=== PATIENT | female | born 1930 | race Caucasian/White ===

== ENCOUNTER 2019-08-20 15:39 | Inpatient (IN) ==
[2019-08-20] MEDS ORDERED: ALBUT/IPRATROP 3MG/0.5MG NEB 3 ML VIAL NEB STA (16:16)
[2019-08-20 16:58] LABS: Basophils # (auto) 0.02 K/uL (0-0.2); Basophils % (auto) 0.2 %; Eosinophils # (auto) 0.04 K/uL (0-0.5); Eosinophils % (auto) 0.4 %; Hematocrit (blood only) 41.6 % (37-47); Hemoglobin 13.6 g/dL (12.0-16.0); Immature Granulocytes # (auto) 0.03 K/uL (0.00-0.02); Immature Granulocytes % (auto) 0.3 %; Lymphocytes # (auto) 0.65 K/uL (1.2-3.4); Lymphocytes % (auto) 6.7 %; Mean Corpuscular Hemoglobin 32.6 pg (25-34); Mean Corpuscular Hgb Conc 32.7 g/dL (32-36); Mean Corpuscular Volume 99.8 fL (80-100); Mean Platelet Volume 10.3 fL (7.4-10.4); Monocytes % (auto) 7.2 %; Neutrophils # (auto) 8.23 K/uL (1.4-6.5); Neutrophils % (auto) 85.2 %; Platelet Count 149 K/uL (130-400); RDW Coefficient of Variation 14.7 % (11.5-14.5); RDW Standard Deviation 53.1 fL (36.4-46.3); Red Blood Count 4.17 M/uL (4.2-5.4); White Blood Count 9.67 K/uL (4.8-10.8)
[2019-08-20 17:07] LABS: INR 1.9 (0.9-1.1); Prothrombin Time 18.6 Seconds (9.0-12.0)
--- NOTE | 2019-08-20 17:08 | XRay Report ---
XR chest 1V portable CLINICAL HISTORY: Atypical chest pain SHORTNESS OF BREATH COMPARISON STUDY: No previous studies for comparison. FINDINGS: The study is somewhat limited from a technical standpoint. The cardiac silhouette is enlarg ed. There is a retrocardiac opacity suggestive of a large hiatal hernia. There is aortic tortuosity. There is left basilar atelectasis/consolidation. There is slight interstitial prominence without evid ence of overt failure.[There is splaying of the kaley. IMPRESSION: 1. Suspected large hiatal hernia 2. Aortic tortuosity 3. Left basilar atelectasis/consolidation 4. Splaying of the kaley. This could be secondary to the large hiatal hernia or left atrial enlargem ent Electronically signed by: Jet Julio M.D. 08/20/2019 5:06 PM
[2019-08-20 17:15] LABS: Base Excess VBG -2.6 mEq/L; Oxygen Saturation VBG 79.3 %; pH VBG 7.29 (7.36-7.41)
[2019-08-20 17:21] LABS: Alanine Aminotransferase 19 U/L (12-78); Albumin Level 2.9 gm/dl (3.4-5.0); Aspartate Aminotransferase 18 U/L (15-37); BUN Creatinine Ratio 24.2 (10-20); Blood Urea Nitrogen 25 mg/dl (7-18); Calcium 10.9 mg/dl (8.5-10.1); Carbon Dioxide 28 mmol/L (21-32); Chloride 102 mmol/L (98-107); Est GFR (African American) 54.5; Glucose 94 mg/dl (70-99); Lipase 116 U/L (73-393); Magnesium 1.6 mg/dl (1.8-2.4); Potassium 4.4 mmol/L (3.5-5.1); Sodium 135 mmol/L (136-145)
[2019-08-20 17:31] LABS: Albumin Globulin Ratio 0.7 (0.9-2); Alkaline Phosphatase 111 U/L (45-117); Bilirubin,Total 0.5 mg/dl (0.2-1); Globulin 3.9 gm/dl (2.5-4.0); NT Pro B Type Natriuretic Pept 454 pg/ml (0-1800); Phosphorus 3.5 mg/dl (2.5-4.9); Total Protein 6.8 gm/dl (6.4-8.2); Troponin I < 0.015 ng/ml (0-0.045)
[2019-08-20] MEDS ORDERED: DOXYCYCLINE HYCLATE 100 MG in DEXTROSE 5% 100 ML IV STA (18:22)
[2019-08-20] MEDS ORDERED: AMPICILLIN/SULBACTAM SOD 3,000 MG in 0.9 % SODIUM CHLORIDE 100 ML IV STA (18:22)
[2019-08-20] MEDS ORDERED: SODIUM CHLORIDE 0.9% 500 ML IV ONE (18:27)
[2019-08-20] MEDS ORDERED: MAGNESIUM SULFATE / D5W 1 GM/100 ML BAG IV STA (18:37)
--- NOTE | 2019-08-20 19:33 | History & Physical Report ---
Date of Service August 20, 2019 Assessment & Plan (1) PNA (pneumonia): Presented with the difficulty in speech associated with shortness of breath and cough No documented fever and/or chills and no white count Chest x-ray showed left lower lobe infiltration/consolidation Likely secondary to aspiration Has been getting Unasyn and doxycycline (to cover Atypical) Speech evaluation Will give nebulized bronchodilators to help breathing Will be given a small amount intravenous fluid for mild dehydration PT/OT evaluation Present on Admission?: Yes (2) Hypoxia: Noted to be hypoxic in the emergency room Venous blood gas showed pH of 7.29 and PCO2 of 53 Clinically better with nasal cannula oxygen Will need to evaluate the requirements of oxygen before discharge Present on Admission?: Yes (3) Generalized weakness: She is minimally mobile and lives alone Spends most of her day on a recliner She is fed by her son and requires assistance in ADL S (4) History of deep venous thrombosis or pulmonary embolus: She has been on Coumadin We will continue Coumadin for now Monitor INR (5) HTN (hypertension): Blood pressure seems to be stable We will continue current medications (6) Lumbar compression fracture: Has chronic back pain Has been given Ultram recently which may be causing more weakness and tiredness and confusion We will advised to give Tylenol for control of pain DVT prophylaxis On Coumadin CODE STATUS DNR/DNI-discussed with the patient History of Present Illness Chief Complaint: Inability to speak, cough with shortness of breath since around this morning Primary Care Provider: Paco Staley MD She is an 88-year-old female with significant past medical 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 She has been getting tramadol to for back pain recently which is making her weak and tired as per the son. She denies any fever and/or chills. Denies any chest pain and/or palpitation and no abdominal pain,nausea and/or vomiting. She passes most of the time on a recliner and she has been complaining of some swelling of the legs. She needs help for ADLs. The emergency room she was minimally short of breath without any fever and/or tachycardia or any increase in white cell count but chest x-ray noted to have left lower lobe infiltration/consolidation. She has started with intravenous Unasyn and doxycycline. She was admitted to telemetry unit for continuation of care. Allergies Allergy/AdvReac Type Severity Reaction Status Date / Time azithromycin Allergy Unknown Unknown Verified 08/20/19 16:12 Home Medications Home Medications Medication Instructions Recorded Confirmed Type atorvastatin 20 mg PO DAILY 08/20/19 08/20/19 History lisinopril 10 mg PO DAILY 08/20/19 08/20/19 History omeprazole 20 mg PO DAILY 08/20/19 08/20/19 History tramadol 50 mg PO Q6H PRN 08/20/19 08/20/19 History warfarin 5 mg PO DAILY 08/20/19 08/20/19 History Past Med/Surg History Medical History Hx of fracture (Chronic) Hx of blood clots (Chronic) Family History Other No significant family history Social History Current Living Situation: Alone Feels Safe at Home: Yes Smoking Status: Never smoker Review of Systems Review of Systems: All systems reviewed & are unremarkable except as noted in HPI & below Physical Exam Physical Exam: Lying in bed with pain moderate distress due to shortness of breath Constitutional: + acute distress (Shortness of breath and back pain), + ill appearing, + thin and + cachectic Eyes: PERRL, conjunctivae normal, anicteric sclerae ENMT: external ear and nose normal, oropharynx normal Neck: trachea midline, no thyromegaly Respiratory: + respiratory distress and + uses accessory muscles Auscultation: + diminished lung sounds (Bilateral at the bases) and + crackles (Left base mainly) Cardiovascular: Rate/Rhythm: regular rate and regular rhythm Heart Sounds: no murmur Gastrointestinal (Abdomen): Inspection/Auscultation: abdomen normal to inspection and normal bowel sounds Percussion/Palpation: abdomen soft; abdomen nontender Musculoskeletal: Osteoarthritic changes in the joints but no acute arthritis in any joint Skin: Generalized bruising mostly in the upper extremities Neurologic: moves all extremities; no focal motor deficits Alert , awake and oriented. Generally weak Lymphatic: no cervical or axillary lymphadenopathy Results & Data Vital Signs (Past 12 Hours) Vital Signs Temp Pulse Resp BP Pulse Ox 08/20/19 18:00 86 18 124/78 95 08/20/19 17:30 85 21 124/72 95 08/20/19 17:09 20 97 08/20/19 17:00 88 19 130/82 98 08/20/19 16:51 96 H 23 143/85 H 97 08/20/19 15:42 36.5 C 102 H 24 151/85 H 89 L Laboratory Results Short CBC 08/20/19 Range/Units 16:48 WBC 9.67 (4.8-10.8) K/uL Hgb 13.6 (12.0-16.0) g/dL Hct 41.6 (37-47) % Plt Count 149 (130-400) K/uL BMP 08/20/19 16:48 Sodium 135 L Potassium 4.4 Chloride 102 Carbon Dioxide 28 BUN 25 H Creatinine 1.05 Glucose 94 Calcium 10.9 H Cardiac Enzymes 08/20/19 Range/Units 16:48 Troponin I < 0.015 (0-0.045) ng/ml Liver Function 08/20/19 Range/Units 16:48 Total Bilirubin 0.5 (0.2-1) mg/dl AST 18 (15-37) U/L ALT 19 (12-78) U/L Alkaline Phosphatase 111 (45-117) U/L Albumin 2.9 L (3.4-5.0) gm/dl Medications Administered Current Inpatient Medications Doxycycline Hyclate 100 mg/ (Dextrose) 110 mls @ 50 mls/hr IV NOW STA Stop: 08/20/19 20:33 Last Admin: 08/20/19 19:18 Dose: 50 mls/hr Documented by: Magnesium Sulfate/Dextrose (Magnesium Sulfate / D5w) 1 gm in 100 mls @ 100 mls/hr IV NOW STA Stop: 08/20/19 19:36 Code Status & VTE Plan VTE Prophylaxis Plan VTE Prophylaxis will be ordered: Yes (1) PNA (pneumonia) Laterality: left Lung location: lower lobe of lung Pneumonia type: due to unspecified organism Qualified Code(s): J18.1 - Lobar pneumonia, unspecified organism
[2019-08-20] MEDS ORDERED: ALBUTEROL 0.083% NEBU SOLN 3 ML VIAL NEB PRN (19:42)
[2019-08-20] MEDS ORDERED: SODIUM CHLORIDE 0.9% 1000ML 1,000 ML IV SCH (19:45)
[2019-08-20 20:41] LABS: Influenza A virus by PCR Neg for Influ A (Neg); Influenza B virus by PCR Neg for Influ B (Neg)
[2019-08-20] MEDS ORDERED: WARFARIN SOD 5 MG TAB PO SCH (21:30)
[2019-08-20] MEDS ORDERED: PATIENT'S HEIGHT AND/OR WEIGHT NEEDED SCH (21:45)
[2019-08-20] MEDS ORDERED: AMPICILLIN/SULBACTAM SOD 3,000 MG in 0.9 % SODIUM CHLORIDE 100 ML IV SCH (23:00)
--- NOTE | 2019-08-20 23:33 | Emergency Department Note ---
Entered by Yane Austin acting as a scribe for Vincent Easley MD History of Present Illness General Chief complaint: Shortness of Breath/Dyspnea Stated complaint: SOB, TROUBLE TALKING, SWOLLEN FEET, STARTED NEW RX Time Seen by Provider: 08/20/19 16:02 Source: patient and family (son) History of Present Illness Onset (ago): hour(s) (earlier today) Location: mouth (shortness of breath) Pain Consistency: + other (worsening) Maximum Pain Intensity: 8 Relieved By: + none Associated symptoms: + denies other symptoms (burning urination and diarrhea), + cough, + weakness and + other (back pain, leg swelling); no fever/chills The patient is an 88 year old F who presents to the Emergency Room with complaints of worsening shortness of breath that started earlier today. The HPI was provided by the patient and her son. The patients son states that the emma ent lives at home alone. He notes that he came home today and tried to talk to the patient. He adds that the patient was not able to talk back to him, which he notes that is not normal. He states that the patient was started on 50mg of tramadol, yesterday, by her PCP due to chronic pain from a history of fractures. The patient denies falling recently. The patient notes that she is currently experiencing weakness, back pain, leg swelling, and coughing. She adds that she cannot currently walk due to her symptoms. She denies experiencing fevers, burning urination, and diarrhea. She also denies, currently, being on home oxygen. She notes that she was sick recently. She adds that she has a history of blood clots and notes that she is currently taking warfarin, regularly. She denies a history of smoking and COPD. Home Medications Home Medications Medication Instructions Recorded Confirmed Type atorvastatin 20 mg PO DAILY 08/20/19 08/20/19 History lisinopril 10 mg PO DAILY 08/20/19 08/20/19 History omeprazole 20 mg PO DAILY 08/20/19 08/20/19 History tramadol 50 mg PO Q6H PRN 08/20/19 08/20/19 History warfarin 5 mg PO DAILY 08/20/19 08/20/19 History Allergies Allergy/AdvReac Type Severity Reaction Status Date / Time azithromycin Allergy Unknown Unknown Verified 08/20/19 16:12 Past Med/Surg History Medical History Tubular adenoma of colon Lumbar compression fracture Hyperlipidemia HTN (hypertension) History of deep venous thrombosis or pulmonary embolus PNA (pneumonia) (Acute) Hypoxia (Acute) Hypomagnesemia (Acute) Generalized weakness (Acute) Hx of fracture (Chronic) Hx of blood clots (Chronic) Family History Other No significant family history Social History Preferred Language: British Communication Ability: Effective Maintenance Foreman Required: No Beliefs That Will Affect Care: None Current Living Situation: Alone Other Information That Helps Us Care for You: No Feels Safe at Home: Yes Safety Concerns: Feels Safe At This Time Smoking Status: Never smoker Do You Dip or Chew Tobacco: No ; Second Hand Exposure: No ; Tobacco Cessation Education Requested by Patient: No Hx Alcohol Use: No Hx Substance Use: No Review of Systems See HPI for pertinent positives & negatives. and A total of 10 systems reviewed and were otherwise negative Physical Exam Vital Signs Vital Signs - 24 hr 08/20/19 15:42 08/20/19 16:51 08/20/19 16:56 Temperature 36.5 C Temperature Source Oral Sepsis Recent Fever Within 48 Hours No Sepsis Action Taken by Nursing No Action Required Pulse Rate 102 H 96 H Pulse Rate from SpO2 Sensor 91 H Respiratory Rate 24 23 Respiratory Effort / Characteristics Blood Pressure 151/85 H 143/85 H Blood Pressure Mean 107 104 Pulse Oximetry 89 L 97 Oxygen Delivery Method Room Air Nasal Cannula Nasal Cannula Oxygen Flow Rate 3 3 08/20/19 17:00 08/20/19 17:09 08/20/19 17:30 Temperature Temperature Source Sepsis Recent Fever Within 48 Hours Sepsis Action Taken by Nursing Pulse Rate 88 85 Pulse Rate from SpO2 Sensor 85 81 Respiratory Rate 19 20 21 Respiratory Effort / Characteristics Non-Labored Spontaneous Blood Pressure 130/82 124/72 Blood Pressure Mean 98 89 Pulse Oximetry 98 97 95 Oxygen Delivery Method Nasal Cannula Nasal Cannula Nasal Cannula Oxygen Flow Rate 3 3 3 08/20/19 18:00 Temperature Temperature Source Sepsis Recent Fever Within 48 Hours Sepsis Action Taken by Nursing Pulse Rate 86 Pulse Rate from SpO2 Sensor 83 Respiratory Rate 18 Respiratory Effort / Characteristics Blood Pressure 124/78 Blood Pressure Mean 93 Pulse Oximetry 95 Oxygen Delivery Method Nasal Cannula Oxygen Flow Rate 3 GENERAL: Awake, alert, mildly dyspneic, in no distress HENT: Normocephalic, atraumatic. Oropharynx with dry mucous membranes and otherwise unremarkable. EYES: Normal conjunctiva. Sclera non-icteric. NECK: Supple. No nuchal rigidity. FROM. No JVD. RESPIRATORY: Mildly dyspneic, diminished breath sounds throughout. CARDIAC: Regular rate, normal rhythm. Extremities warm and well perfused. Pulses equal. ABDOMEN: Soft, non-distended. No tenderness to palpation. No rebound or guarding. No masses. RECTAL: Deferred. MUSCULOSKELETAL: Chest examination reveals no tenderness. The back is severely kyphotic without bony crepitus, mild tenderness to right lateral mid back. There is no CVA tenderness to palpation. No joint edema. LOWER EXTREMITIES: Calves are equal size bilaterally and non-tender. No edema. No discoloration. NEURO: Normal sensorium. No sensory or motor deficits noted. 4/5 strength in all extremities. SKIN: No rash or jaundice noted. Course 1608: The patient was evaluated in room A12B. A complete history and physical exam was performed. 1827: I re-evaluated the patient. The patient states that she feels like her breathing is a little bit better. 183: [facility] the [facility] He will evaluate the patient for further management. Consultations Consultation #1: I reviewed the patient's [facility] He will evaluate the patient for further management. Time: 18:35 Administered Medications Sodium Chloride (Nss 1000ml) 1,000 mls @ 80 mls/hr IV .[id number] [facility] Stop: 08/21/19 08:14 Last Admin: 08/20/19 21:34 Dose: 80 mls/hr Documented by: [id number] Warfarin Sodium (Coumadin) 5 mg PO DAILY@1600 [facility] Stop: 09/19/19 21:29 Last Admin: 08/20/19 22:34 Dose: 5 mg Documented by: [id number] Discontinued Medications Albuterol (Duoneb) 3 ml NEB NOW STA Stop: 08/20/19 16:17 Last Admin: 08/20/19 17:07 Dose: 3 ml Documented by: [id number] Ampicillin Sodium/Sulbactam Sodium 3,000 mg/ Sodium Chloride 108 mls @ 200 mls/hr IV NOW STA; Protocol Stop: 08/20/19 18:54 Last Infusion: 08/20/19 22:30 Dose: 0 mls/hr Documented by: [id number] Admin: 08/20/19 21:37 Dose: 200 mls/hr Documented by: [id number] Doxycycline Hyclate 100 mg/ (Dextrose) 110 mls @ 50 mls/hr IV NOW STA Stop: 08/20/19 20:33 Last Infusion: 08/20/19 21:33 Dose: 0 mls/hr Documented by: [id number] Admin: 08/20/19 19:18 Dose: 50 mls/hr Documented by: [id number] Sodium Chloride (Nss) 500 mls @ 999 mls/hr IV .Q31M ONE Stop: 08/20/19 18:57 Last Infusion: 08/20/19 21:33 Dose: 0 mls/hr Documented by: [id number] Admin: 08/20/19 20:18 Dose: 999 mls/hr Documented by: [id number] Magnesium Sulfate/Dextrose (Magnesium Sulfate / D5w) 1 gm in 100 mls @ 100 mls/hr IV NOW STA Stop: 08/20/19 19:36 Last Infusion: 08/20/19 21:32 Dose: 0 mls/hr Documented by: [id number] Admin: 08/20/19 20:18 Dose: 100 mls/hr Documented by: [id number] Medical Decision Making Differential Diagnosis Differential diagnoses includes but is not limited to pneumonia, bronchitis, COPD/Asthma exacerbation, pneumothorax, pulmonary embolism, congestive heart failure, acute coronary syndrome Medical Records Attestation: I reviewed the patient's medical records. Home Medications Current Medication List: was personally reviewed by [place] Laboratory Data Attestation: I reviewed the patient's lab results. Result diagrams: 08/20/19 16:48 08/20/19 16:48 Lab Results 08/20/19 08/20/19 08/20/19 Range/Units 16:48 16:48 16:48 WBC 9.67 (4.8-10.8) K/uL RBC 4.17 L (4.2-5.4) M/uL Hgb 13.6 (12.0-16.0) g/dL Hct 41.6 (37-47) % MCV 99.8 (80-100) fL MCH 32.6 (25-34) pg MCHC 32.7 (32-36) g/dL RDW Std Deviation 53.1 H (36.4-46.3) fL RDW Coeff of Melvi 14.7 H (11.5-14.5) % Plt Count 149 (130-400) K/uL MPV 10.3 (7.4-10.4) fL Immature Gran % (Auto) 0.3 % Neut % (Auto) 85.2 % Lymph % (Auto) 6.7 % [place] % (Auto) 7.2 % Eos % (Auto) 0.4 % Baso % (Auto) 0.2 % Immature Gran # (Auto) 0.03 H (0.00-0.02) K/uL Neut # (Auto) 8.23 H (1.4-6.5) K/uL Lymph # (Auto) 0.65 L (1.2-3.4) K/uL [place] # (Auto) 0.70 H (0.11-0.59) K/uL Eos # (Auto) 0.04 (0-0.5) K/uL Baso # (Auto) 0.02 (0-0.2) K/uL PT (9.0-12.0) Seconds INR (0.9-1.1) VBG pH 7.29 L (7.36-7.41) VBG pCO2 53 H (38-50) mmHg VBG pO2 45 mmHg VBG HCO3 25 mmol/L VBG O2 Saturation 79.3 % VBG Base Excess -2.6 mEq/L Barometric Pressure 733.8 mm/Hg Sodium 135 L (136-145) mmol/L Potassium 4.4 (3.5-5.1) mmol/L Chloride 102 (98-107) mmol/L Carbon Dioxide 28 (21-32) mmol/L Anion Gap 5.0 (3-11) BUN 25 H (7-18) mg/dl Creatinine 1.05 (0.6-1.2) mg/dl Est Cr Clr Drug Dosing Not Reportable Est GFR ( Amer) 54.5 Est GFR (Non-Af Amer) 47.0 BUN/Creatinine Ratio 24.2 H (10-20) Glucose 94 (70-99) mg/dl Calcium 10.9 H (8.5-10.1) mg/dl Phosphorus 3.5 (2.5-4.9) mg/dl Magnesium 1.6 L (1.8-2.4) mg/dl Total Bilirubin 0.5 (0.2-1) mg/dl AST 18 (15-37) U/L ALT 19 (12-78) U/L Alkaline Phosphatase 111 (45-117) U/L Troponin I < 0.015 (0-0.045) ng/ml NT-Pro-B Natriuret Pep 454 (0-1800) pg/ml Total Protein 6.8 (6.4-8.2) gm/dl Albumin 2.9 L (3.4-5.0) gm/dl Globulin 3.9 (2.5-4.0) gm/dl Albumin/Globulin Ratio 0.7 L (0.9-2) Lipase 116 (73-393) U/L TSH 1.790 (0.300-4.500) uIu/ml 08/20/19 Range/Units 16:48 WBC (4.8-10.8) K/uL RBC (4.2-5.4) M/uL Hgb (12.0-16.0) g/dL Hct (37-47) % MCV (80-100) fL MCH (25-34) pg MCHC (32-36) g/dL RDW Std Deviation (36.4-46.3) fL RDW Coeff of Melvi (11.5-14.5) % Plt Count (130-400) K/uL MPV (7.4-10.4) fL Immature Gran % (Auto) % Neut % (Auto) % Lymph % (Auto) % [place] % (Auto) % Eos % (Auto) % Baso % (Auto) % Immature Gran # (Auto) (0.00-0.02) K/uL Neut # (Auto) (1.4-6.5) K/uL Lymph # (Auto) (1.2-3.4) K/uL [place] # (Auto) (0.11-0.59) K/uL Eos # (Auto) (0-0.5) K/uL Baso # (Auto) (0-0.2) K/uL PT 18.6 H (9.0-12.0) Seconds INR 1.9 H (0.9-1.1) VBG pH (7.36-7.41) VBG pCO2 (38-50) mmHg VBG pO2 mmHg VBG HCO3 mmol/L VBG O2 Saturation % VBG Base Excess mEq/L Barometric Pressure mm/Hg Sodium (136-145) mmol/L Potassium (3.5-5.1) mmol/L Chloride (98-107) mmol/L Carbon Dioxide (21-32) mmol/L Anion Gap (3-11) BUN (7-18) mg/dl Creatinine (0.6-1.2) mg/dl Est Cr Clr Drug Dosing Est GFR ( Amer) Est GFR (Non-Af Amer) BUN/Creatinine Ratio (10-20) Glucose (70-99) mg/dl Calcium (8.5-10.1) mg/dl Phosphorus (2.5-4.9) mg/dl Magnesium (1.8-2.4) mg/dl Total Bilirubin (0.2-1) mg/dl AST (15-37) U/L ALT (12-78) U/L Alkaline Phosphatase (45-117) U/L Troponin I (0-0.045) ng/ml NT-Pro-B Natriuret Pep (0-1800) pg/ml Total Protein (6.4-8.2) gm/dl Albumin (3.4-5.0) gm/dl Globulin (2.5-4.0) gm/dl Albumin/Globulin Ratio (0.9-2) Lipase (73-393) U/L TSH (0.300-4.500) uIu/ml Imaging Data Radiologist's Impression: Radiology results as stated below per my review and the radiologist's interpretation: XR chest 1V portable CLINICAL HISTORY: Atypical chest pain SHORTNESS OF BREATH COMPARISON STUDY: No previous studies for comparison. FINDINGS: The study is somewhat limited from a technical standpoint. The cardiac silhouette is enlarged. There is a retrocardiac opacity suggestive of a large hiatal hernia. There is aortic tortuosity. There is left basilar atelectasis/consolidation. There is slight interstitial prominence without evidence of overt failure.[There is splaying of the kaley. IMPRESSION: 1. Suspected large hiatal hernia 2. Aortic tortuosity 3. Left basilar atelectasis/consolidation 4. Splaying of the kaley. This could be secondary to the large hiatal hernia or left atrial enlargement Electronically signed by: Jet Julio M.D. 08/20/2019 5:06 PM ECG Data Attestation: I personally reviewed and interpreted this ECG as follows: Indication: SOB/dyspnea Rate (beats per minute): 80 Rhythm: sinus with SA Findings: + other (normal axis); no acute ischemic change Blood Pressure Blood Pressure Findings: Elevated blood pressure Blood Pressure Disposition: further management by hospitalist MDM Narrative The patient is a pleasant 88-year-old woman with a past medical history of DVT on Coumadin, hypertension, hyperlipidemia who presents emergency department with worsening shortness of breath generalized weakness in setting of starting tramadol yesterday for chronic back pain due to fractures per hpi. On arrival the patient is mildly dyspneic but no acute distress, afebrile with heart rate in the 100s and hypoxic to 89% on room air. The patient has diminished breath sounds throughout. She has a severely kyphotic back with mild tenderness of the right lateral mid back without bony crepitus. She has generalized weakness in all extremities with 4/5 strength. EKG without overt acute ischemia. Chest x- ray with left basilar density suspicious for pneumonia which given the patient's age and recent confusion and drowsiness from tramadol is suspicious for aspiration. WBC within normal limits. H/H and platelets within normal limits. VBG with pH of 7.29 with PCO2 of 53 however chemistry without significant acidosis and lactate within normal limits. There is normal anion gap. BUN/creatinine> 20, consistent with the patient's clinically dry appearance. Magnesium 1.6 with repletion provided. Electrolytes and LFTs otherwise unremarkable. Troponin negative and undetectable. BNP within normal limits. Flu negative. Patient feeling improved after IV fluids and DuoNeb. However given the patient's hypoxia in the setting of pneumonia reasonable to admit the patient for further management. The patient and son at the bedside are agreeable. Will treat with Unasyn and doxycycline. Case was discussed with Dr. Zuniga, [facility] [address] hospitalist, who will evaluate the patient for admission. Impression & Plan PNA (pneumonia), Hypoxia, Hypomagnesemia, Generalized weakness Discharge Plan Visit Data *Final* Discharge Date/Time: 08/20/19 20:45 Chief Complaint: Shortness of Breath/Dyspnea Stated Complaint: SOB, TROUBLE TALKING, SWOLLEN FEET, STARTED NEW RX ED Provider: Vincent Easley Discharge Problem: PNA (pneumonia), Hypoxia, Hypomagnesemia, Generalized weakness Patient Disposition: Admitted As Inpatient Discharge Instructions Interventions: ED Discharge Assessment Last Done: 08/20/19 20:45 Discharge Problem: PNA (pneumonia) Qualifiers: Pneumonia type: due to unspecified organism Laterality: left Lung location: lower lobe of lung Qualified Code(s): J18.1 - Lobar pneumonia, unspecified organism The scribe's documentation has been prepared under my direction and personally reviewed by me in its entirety. I confirm that the note above accurately reflects all work, treatment, procedures, and medical decision making performed by me.
[2019-08-21] MEDS: ACETAMINOPHEN 325 MG TAB PO PRN ×3 (05:05→16:29)
[2019-08-21] MEDS: LIDOCAINE 5% 1 PATCH TD SCH (06:03)
[2019-08-21 06:34] LABS: Basophils # (auto) 0.01 K/uL (0-0.2); Basophils % (auto) 0.2 %; Eosinophils # (auto) 0.03 K/uL (0-0.5); Eosinophils % (auto) 0.5 %; Hematocrit (blood only) 38.5 % (37-47); Hemoglobin 12.4 g/dL (12.0-16.0); Immature Granulocytes # (auto) 0.04 K/uL (0.00-0.02); Immature Granulocytes % (auto) 0.6 %; Lymphocytes # (auto) 0.61 K/uL (1.2-3.4); Lymphocytes % (auto) 9.3 %; Mean Corpuscular Hemoglobin 32.3 pg (25-34); Mean Corpuscular Hgb Conc 32.2 g/dL (32-36); Mean Corpuscular Volume 100.3 fL (80-100); Mean Platelet Volume 10.5 fL (7.4-10.4); Monocytes % (auto) 9.2 %; Neutrophils # (auto) 5.26 K/uL (1.4-6.5); Neutrophils % (auto) 80.2 %; Platelet Count 136 K/uL (130-400); RDW Coefficient of Variation 14.6 % (11.5-14.5); Red Blood Count 3.84 M/uL (4.2-5.4); White Blood Count 6.55 K/uL (4.8-10.8)
[2019-08-21 06:55] LABS: INR 1.9 (0.9-1.1); Prothrombin Time 18.2 Seconds (9.0-12.0)
[2019-08-21 07:15] LABS: BUN Creatinine Ratio 28.2 (10-20); Calcium 9.8 mg/dl (8.5-10.1); Creatinine Clr Calc Pharmacy 42.5 ml/min; Est GFR (African American) 90.8; Est GFR (Non-African American) 78.3; Phosphorus 2.8 mg/dl (2.5-4.9); Potassium 4.2 mmol/L (3.5-5.1)
[2019-08-21] MEDS: ATORVASTATIN 20 MG TAB PO SCH (08:10)
[2019-08-21] MEDS: PANTOprazole 40 MG TAB PO SCH (08:10)
[2019-08-21] MEDS: lisinopriL 10 MG TAB PO SCH (08:10)
[2019-08-21] MEDS: DOXYCYCLINE HYCLATE 100 MG in DEXTROSE 5% 100 ML IV SCH ×2 (08:13→21:04)
--- NOTE | 2019-08-21 13:21 | Hospitalist Progress Note ---
Date of Service August 21, 2019 Assessment & Plan (1) PNA (pneumonia): Left basilar pneumonia Possible Aspiration CXR:Suspected large hiatal hernia. Aortic tortuosity. Left basilar atelectasis/consolidation. Splaying of the kaley. This could be secondary to the large hiatal hernia or left atrial enlargement Elevated Procalcitonin Continue Unasyn, Doxycycline Day #2 Blood Culture:Pending Nebs PRN Speech evaluation done Aspiration Precautions (2) Hypoxia: Hypoxia likely secondary to above Continue supplemental oxygen as needed Titrate oxygen to keep sats above 92% (3) Generalized weakness: Patient is mostly Recliner/Bed bound at baseline She needs assistance with ADLs (4) History of deep venous thrombosis or pulmonary embolus: Subtherapeutic INR INR 1.9 today Increase Coumadin to 6 mg today Monitor INR (5) HTN (hypertension): Slightly elevated secondary to distress Continue home medications Monitor (6) Lumbar compression fracture: Has chronic back pain Patient was prescribed Ultram recently which may be contributing to tiredness and confusion Avoid Narcotics as able monitor DVT Px: On Coumadin CODE STATUS DNR/DNI Disposition: PT/OT prior to discharge Subjective Patient is seen and examined at bedside Complains of chronic back pain and SOB Less cough today Denies any chest pain, dizziness, nausea, abd pain Offers no other complaints No family at bedside Review of Systems Review of Systems: All systems reviewed & are unremarkable except as noted in HPI & below Physical Exam Physical Exam: Physical Exam: Vitals signs as noted above General Appearance:Moderately built and nourished, Elderly, mild distress, ill appearing Head: normocephalic, Atraumatic Eyes: normal inspection, EOMI Neck: supple, Trachea midline Respiratory/Chest: Decreased breath sounds, CTA, + accessory muscle use Cardiovascular: S1, S2, No murmur Abdomen/GI:Soft, Non tender, Bowel sounds present Extremities/Musculoskelatal:normal inspection, Trace edema Neurologic/Psych:AAOX2, grossly no focal neurological deficits Skin: normal color, warm Results & Data Vital Signs (Past 12 Hours) Vital Signs Temp Pulse Resp BP Pulse Ox 08/21/19 11:02 36.4 C L 89 22 154/91 H 97 08/21/19 07:00 36.3 C L 86 20 129/67 97 08/21/19 04:17 36.6 C 92 H 19 157/83 H 96 Laboratory Results Short CBC 08/20/19 08/21/19 Range/Units 16:48 05:56 WBC 9.67 6.55 (4.8-10.8) K/uL Hgb 13.6 12.4 (12.0-16.0) g/dL Hct 41.6 38.5 (37-47) % Plt Count 149 136 (130-400) K/uL BMP 08/20/19 08/21/19 16:48 05:56 Sodium 135 L 137 Potassium 4.4 4.2 Chloride 102 104 Carbon Dioxide 28 28 BUN 25 H 19 H Creatinine 1.05 0.66 D Glucose 94 77 Calcium 10.9 H 9.8 Cardiac Enzymes 08/20/19 Range/Units 16:48 Troponin I < 0.015 (0-0.045) ng/ml Liver Function 08/20/19 Range/Units 16:48 Total Bilirubin 0.5 (0.2-1) mg/dl AST 18 (15-37) U/L ALT 19 (12-78) U/L Alkaline Phosphatase 111 (45-117) U/L Albumin 2.9 L (3.4-5.0) gm/dl (1) PNA (pneumonia) Laterality: left Lung location: lower lobe of lung Pneumonia type: due to unspecified organism Qualified Code(s): J18.1 - Lobar pneumonia, unspecified organism
[2019-08-21 14:39] LABS: Appearance Urine Clear (Clear); Bacteria Urine Automated Negative (Negative); Bilirubin Urine Negative (Negative); Blood Urine Negative (Negative); Color Urine Yellow; Epithelial Cell Urine Auto >30 /lpf (0-5); Glucose Urine UA Negative (Negative); Ketones Urine Negative (Negative); Leukocyte Esterase Urine 1+ (Negative); Nitrite Urine Negative (Negative); Protein Urine Trace (Negative); Specific Gravity Urine 1.026 (1.000-1.030); Urobilinogen Urine Negative (Negative)
[2019-08-21] MEDS: AMPICILLIN/SULBACTAM SOD 3,000 MG in 0.9 % SODIUM CHLORIDE 100 ML IV SCH (15:41)
[2019-08-21] MEDS ORDERED: WARFARIN SOD 6 MG TAB PO SCH (16:00)
[2019-08-22] MEDS ORDERED: ACETAMINOPHEN 325 MG TAB ONE (00:04)
[2019-08-22] MEDS: ACETAMINOPHEN 325 MG TAB PO PRN ×4 (00:06→19:04)
[2019-08-22] MEDS: AMPICILLIN/SULBACTAM SOD 3,000 MG in 0.9 % SODIUM CHLORIDE 100 ML IV SCH ×5 (01:06→22:38)
[2019-08-22 06:21] LABS: Hematocrit (blood only) 39.6 % (37-47); Hemoglobin 12.7 g/dL (12.0-16.0); Mean Corpuscular Hemoglobin 32.6 pg (25-34); Mean Corpuscular Hgb Conc 32.1 g/dL (32-36); Mean Corpuscular Volume 101.8 fL (80-100); Mean Platelet Volume 11.3 fL (7.4-10.4); Platelet Count 149 K/uL (130-400); RDW Coefficient of Variation 14.7 % (11.5-14.5); RDW Standard Deviation 54.1 fL (36.4-46.3); Red Blood Count 3.89 M/uL (4.2-5.4); White Blood Count 6.01 K/uL (4.8-10.8)
[2019-08-22 06:41] LABS: INR 3.5 (0.9-1.1); Prothrombin Time 32.6 Seconds (9.0-12.0)
[2019-08-22 06:59] LABS: BUN Creatinine Ratio 17.9 (10-20); Calcium 10.4 mg/dl (8.5-10.1); Creatinine Clr Calc Pharmacy 45.6 ml/min; Est GFR (African American) 92.7; Est GFR (Non-African American) 79.9; Potassium 4.2 mmol/L (3.5-5.1)
[2019-08-22] MEDS: DOXYCYCLINE HYCLATE 100 MG in DEXTROSE 5% 100 ML IV SCH ×2 (08:19→20:11)
[2019-08-22] MEDS: ATORVASTATIN 20 MG TAB PO SCH (08:22)
[2019-08-22] MEDS: LIDOCAINE 5% 1 PATCH TD SCH ×2 (08:22→10:16)
[2019-08-22] MEDS: lisinopriL 10 MG TAB PO SCH (08:22)
[2019-08-22] MEDS: PANTOprazole 40 MG TAB PO SCH (08:22)
[2019-08-22] MEDS ORDERED: ENALAPRILAT 0.625 MG in SYRINGE 9.5 ML IV PRN (13:27)
--- NOTE | 2019-08-22 13:28 | Hospitalist Progress Note ---
Date of Service August 22, 2019 Assessment & Plan (1) PNA (pneumonia): Left basilar pneumonia Possible Aspiration CXR:Suspected large hiatal hernia. Aortic tortuosity. Left basilar atelectasis/consolidation. Splaying of the kaley. This could be secondary to the large hiatal hernia or left atrial enlargement Elevated Procalcitonin Continue Unasyn, Doxycycline Day #3 Blood Culture:No growth to date Nebs PRN Speech evaluation done Aspiration Precautions (2) Hypoxia: Hypoxia secondary to above Continue supplemental oxygen as needed Titrate oxygen to keep sats above 92% (3) Generalized weakness: Patient is mostly Recliner/Bed bound at baseline She needs assistance with ADLs (4) History of deep venous thrombosis or pulmonary embolus: Supratherapeutic INR INR 3.5 today Hold Coumadin today Monitor INR (5) HTN (hypertension): Slightly elevated secondary to distress/Non compliance Continue home medications if patient agrees Vasotec PRN Monitor (6) Lumbar compression fracture: Has chronic back pain Patient was prescribed Ultram recently which may be contributing to tiredness and confusion Avoid Narcotics as able monitor DVT Px: Hold Coumadin as INR is supratherapeutic CODE STATUS DNR/DNI Disposition: PT/OT prior to discharge Subjective Patient is seen and examined at bedside Patient has been refusing most medications as per RN Shortness of breath slightly better today Cough about the same as yesterday Denies any chest pain Reports chronic back pain Blood pressure slightly elevated as patient refused meds Patient is upset due to multiple blood draws and prefers no aggressive management No family at bedside Review of Systems Review of Systems: All systems reviewed & are unremarkable except as noted in HPI & below Physical Exam Physical Exam: Physical Exam: Vitals signs as noted above General Appearance:Moderately built and nourished, Elderly, mild distress, ill appearing Head: normocephalic, Atraumatic Eyes: normal inspection, EOMI Neck: supple, Trachea midline Respiratory/Chest: Decreased breath sounds, CTA Cardiovascular: S1, S2, No murmur Abdomen/GI:Soft, Non tender, Bowel sounds present Extremities/Musculoskelatal:normal inspection, Trace edema Neurologic/Psych:AAOX2, grossly no focal neurological deficits Skin: normal color, warm Results & Data Vital Signs (Past 12 Hours) Vital Signs Temp Pulse Pulse Resp BP BP Pulse Ox 08/22/19 10:45 36.5 C 91 H 20 176/82 H 96 08/22/19 08:00 96 H 08/22/19 07:11 36.6 C 98 H 19 156/84 H 97 08/22/19 03:32 36.7 C 96 H 16 143/86 H 96 Laboratory Results Short CBC 08/22/19 Range/Units 05:37 WBC 6.01 (4.8-10.8) K/uL Hgb 12.7 (12.0-16.0) g/dL Hct 39.6 (37-47) % Plt Count 149 (130-400) K/uL BMP 08/22/19 05:37 Sodium 140 Potassium 4.2 Chloride 105 Carbon Dioxide 31 BUN 11 Creatinine 0.62 Glucose 87 Calcium 10.4 H Urine 08/21/19 Range/Units 14:00 Urine Color Yellow Urine Appearance Clear (Clear) Urine pH 5.0 (4.5-7.5) Ur Specific [place] 1.026 (1.000-1.030) Urine Protein Trace H (Negative) Urine Glucose (UA) Negative (Negative) (1) PNA (pneumonia) Laterality: left Lung location: lower lobe of lung Pneumonia type: due to unspecified organism Qualified Code(s): J18.1 - Lobar pneumonia, unspecified organism
[2019-08-22] MEDS: DOCUSATE SODIUM 100 MG CAP PO SCH ×2 (14:37→20:15)
[2019-08-22] MEDS ORDERED: DOCUSATE SODIUM 100 MG CAP PO SCH (21:00)
[2019-08-22] MEDS ORDERED: OXYCODONE HCL IR 5 MG TAB (IMMEDIATE RELEASE) PO STA (22:18)
[2019-08-23] MEDS: AMPICILLIN/SULBACTAM SOD 3,000 MG in 0.9 % SODIUM CHLORIDE 100 ML IV SCH ×4 (04:05→23:42)
[2019-08-23] MEDS: ACETAMINOPHEN 325 MG TAB PO PRN (06:40)
[2019-08-23] MEDS ORDERED: AMLODIPINE BESYLATE 5 MG TAB PO ONE (07:22)
[2019-08-23] MEDS: DOXYCYCLINE HYCLATE 100 MG in DEXTROSE 5% 100 ML IV SCH ×2 (08:09→20:14)
[2019-08-23] MEDS: LIDOCAINE 5% 1 PATCH TD SCH (08:10)
[2019-08-23] MEDS: lisinopriL 20 MG TAB PO SCH (08:11)
[2019-08-23] MEDS: DOCUSATE SODIUM 100 MG CAP PO SCH ×2 (08:11→20:14)
[2019-08-23] MEDS: PANTOprazole 40 MG TAB PO SCH (08:11)
[2019-08-23] MEDS: ATORVASTATIN 20 MG TAB PO SCH (08:11)
[2019-08-23] MEDS ORDERED: fentaNYL 12 MCG/HR TDSY TD SCH (11:00)
[2019-08-23] MEDS: ACETAMINOPHEN 1,000 MG/100 ML VIAL IV PRN ×2 (13:05→22:38)
[2019-08-23] MEDS: CHECK FENTANYL PATCH PLACEMENT SCH (17:29)
--- NOTE | 2019-08-23 19:41 | Hospitalist Progress Note ---
Date of Service August 23, 2019 Assessment & Plan (1) PNA (pneumonia): Left basilar pneumonia Possible Aspiration CXR:Suspected large hiatal hernia. Aortic tortuosity. Left basilar atelectasis/consolidation. Splaying of the kaley. This could be secondary to the large hiatal hernia or left atrial enlargement Elevated Procalcitonin Continue Unasyn, Doxycycline Day #4/7 Blood Culture:No growth to date Nebs PRN Speech evaluation done Aspiration Precautions (2) Hypoxia: Hypoxia secondary to above Continue supplemental oxygen as needed Titrate oxygen to keep sats above 92% (3) Generalized weakness: Patient is mostly Recliner/Bed bound at baseline She needs assistance with ADLs (4) History of deep venous thrombosis or pulmonary embolus: Supratherapeutic INR Last INR 3.5 on 08/22/19 Hold Coumadin today Monitor INR if patient agrees blood draws (5) HTN (hypertension): Elevated secondary to distress Added amlodipine Continue lisinopril increased to 20 mg daily Vasotec PRN Monitor (6) Lumbar compression fracture: Has chronic back pain Patient was prescribed Ultram recently which may be contributing to tiredness and confusion Started on fentanyl patch IV Tylenol as needed Avoid additional Narcotics as able monitor DVT Px: Hold Coumadin as INR is supratherapeutic CODE STATUS DNR/DNI Disposition: PT/OT prior to discharge Subjective Patient is seen and examined at bedside Complains of significant lower back pain Blood pressure elevated likely secondary to pain Refuses blood draws Discussed with family in detail at bedside Offers no other complaints Less cough Denies any chest pain, SOB Review of Systems Review of Systems: All systems reviewed & are unremarkable except as noted in HPI & below Physical Exam Physical Exam: Physical Exam: Vitals signs as noted above General Appearance:Moderately built and nourished, Elderly, mild distress, ill appearing Head: normocephalic, Atraumatic Eyes: normal inspection, EOMI Neck: supple, Trachea midline Respiratory/Chest: Decreased breath sounds, CTA Cardiovascular: S1, S2, No murmur Abdomen/GI:Soft, Non tender, Bowel sounds present Extremities/Musculoskelatal:normal inspection, Trace edema Neurologic/Psych:AAOX2, grossly no focal neurological deficits Skin: normal color, warm Results & Data Vital Signs (Past 12 Hours) Vital Signs Temp Pulse Pulse Resp BP Pulse Ox 10/14/19 15:06 36.5 C 89 12 139/97 98 08/23/19 09:11 101 H 147/86 H (1) PNA (pneumonia) Laterality: left Lung location: lower lobe of lung Pneumonia type: due to unspecified organism Qualified Code(s): J18.1 - Lobar pneumonia, unspecified organism
[2019-08-24] MEDS: CHECK FENTANYL PATCH PLACEMENT SCH ×3 (00:24→17:08)
[2019-08-24] MEDS: AMPICILLIN/SULBACTAM SOD 3,000 MG in 0.9 % SODIUM CHLORIDE 100 ML IV SCH ×2 (06:14→12:24)
[2019-08-24] MEDS: AMLODIPINE BESYLATE 5 MG TAB PO SCH (08:30)
[2019-08-24] MEDS: ATORVASTATIN 20 MG TAB PO SCH (08:30)
[2019-08-24] MEDS: DOCUSATE SODIUM 100 MG CAP PO SCH ×2 (08:30→20:25)
[2019-08-24] MEDS: lisinopriL 20 MG TAB PO SCH (08:30)
[2019-08-24] MEDS: PANTOprazole 40 MG TAB PO SCH (08:30)
[2019-08-24] MEDS: LIDOCAINE 5% 1 PATCH TD SCH (08:31)
[2019-08-24] MEDS: POLYETHYLENE (MIRALAX) 17 GM PACK PO PRN (08:42)
[2019-08-24] MEDS: DOXYCYCLINE HYCLATE 100 MG in DEXTROSE 5% 100 ML IV SCH (09:40)
[2019-08-24 10:06] LABS: Prothrombin Time 35.4 Seconds (9.0-12.0)
[2019-08-24 10:20] LABS: INR 3.8 (0.9-1.1)
[2019-08-24 10:24] LABS: Creatinine Clr Calc Pharmacy 37.2 ml/min; Est GFR (African American) 80.6; Est GFR (Non-African American) 69.5
[2019-08-24] MEDS: ACETAMINOPHEN 325 MG TAB PO PRN ×2 (12:31→20:28)
--- NOTE | 2019-08-24 13:21 | Hospitalist Progress Note ---
Date of Service August 24, 2019 Assessment & Plan (1) PNA (pneumonia): Left basilar pneumonia Possible Aspiration CXR:Suspected large hiatal hernia. Aortic tortuosity. Left basilar atelectasis/consolidation. Splaying of the kaley. This could be secondary to the large hiatal hernia or left atrial enlargement Elevated Procalcitonin >>Trended down Continue Unasyn, Doxycycline>>>Transined to Augmentin, Doxy-- Day #5/7 Blood Culture:No growth to date Nebs PRN Speech evaluation done Aspiration Precautions (2) Hypoxia: Hypoxia secondary to above Continue supplemental oxygen as needed Titrate oxygen to keep sats above 92% (3) Generalized weakness: Patient is mostly Recliner/Bed bound at baseline She needs assistance with ADLs (4) History of deep venous thrombosis or pulmonary embolus: Supratherapeutic INR Last INR 3.8 Today Hold Coumadin today Monitor INR (5) HTN (hypertension): Elevated secondary to pain Added amlodipine Continue lisinopril increased to 20 mg daily Vasotec PRN BP better Monitor (6) Lumbar compression fracture: Has chronic back pain Patient was prescribed Ultram recently which may be contributing to tiredness and confusion Continue fentanyl patch IV Tylenol as needed Avoid additional Narcotics as able monitor DVT Px: Hold Coumadin as INR is supratherapeutic CODE STATUS DNR/DNI Disposition: Needs Rehab placement Case management consulted for discharge planning Subjective Patient is seen and examined at bedside Lower back pain slightly better today INR remains elevated--No bleeding issues Family at bedside Less cough Breathing at baseline as per family Denies any chest pain, nausea, abd pain Needs Rehab placement Review of Systems Review of Systems: All systems reviewed & are unremarkable except as noted in HPI & below Physical Exam Physical Exam: Physical Exam: Vitals signs as noted above General Appearance:Moderately built and nourished, ill appearing Head: normocephalic, Atraumatic Eyes: normal inspection, EOMI Neck: supple, Trachea midline Respiratory/Chest: Decreased breath sounds, CTA Cardiovascular: S1, S2, No murmur Abdomen/GI:Soft, Non tender, Bowel sounds present Extremities/Musculoskelatal:normal inspection, Trace edema Neurologic/Psych:AAOX2, grossly no focal neurological deficits Skin: normal color, warm Results & Data Vital Signs (Past 12 Hours) Vital Signs Temp Pulse Resp BP Pulse Ox 08/24/19 07:05 36.2 C L 88 14 147/93 H 93 Laboratory Results BMP 08/24/19 09:32 Creatinine 0.76 (1) PNA (pneumonia) Laterality: left Lung location: lower lobe of lung Pneumonia type: due to unspecified organism Qualified Code(s): J18.1 - Lobar pneumonia, unspecified organism
[2019-08-24] MEDS: AMOXICILLIN/CLAVULANATE 500 MG TAB PO SCH (18:40)
[2019-08-24] MEDS: DOXYCYCLINE HYCLATE 100 MG CAP PO SCH (20:25)
[2019-08-25] MEDS: CHECK FENTANYL PATCH PLACEMENT SCH ×3 (00:25→15:59)
[2019-08-25] MEDS: ACETAMINOPHEN 325 MG TAB PO PRN (04:34)
[2019-08-25] MEDS: POLYETHYLENE (MIRALAX) 17 GM PACK PO PRN (04:35)
[2019-08-25] MEDS ORDERED: ACETAMINOPHEN 325 MG TAB PO PRN (07:50)
[2019-08-25] MEDS: lisinopriL 20 MG TAB PO SCH (08:33)
[2019-08-25] MEDS: AMLODIPINE BESYLATE 5 MG TAB PO SCH (08:33)
[2019-08-25] MEDS: ATORVASTATIN 20 MG TAB PO SCH (08:33)
[2019-08-25] MEDS: PANTOprazole 40 MG TAB PO SCH (08:34)
[2019-08-25] MEDS: DOCUSATE SODIUM 100 MG CAP PO SCH (08:34)
[2019-08-25] MEDS: DOXYCYCLINE HYCLATE 100 MG CAP PO SCH (08:34)
[2019-08-25] MEDS: LIDOCAINE 5% 1 PATCH TD SCH (08:48)
[2019-08-25] MEDS: AMOXICILLIN/CLAVULANATE 500 MG TAB PO SCH (09:09)
[2019-08-25 10:07] LABS: Basophils # (auto) 0.02 K/uL (0-0.2); Basophils % (auto) 0.2 %; Eosinophils # (auto) 0.08 K/uL (0-0.5); Eosinophils % (auto) 0.9 %; Hematocrit (blood only) 40.2 % (37-47); Hemoglobin 13.1 g/dL (12.0-16.0); Immature Granulocytes # (auto) 0.05 K/uL (0.00-0.02); Immature Granulocytes % (auto) 0.6 %; Lymphocytes # (auto) 1.06 K/uL (1.2-3.4); Lymphocytes % (auto) 12.2 %; Mean Corpuscular Hemoglobin 32.7 pg (25-34); Mean Corpuscular Volume 100.2 fL (80-100); Mean Platelet Volume 9.8 fL (7.4-10.4); Monocytes # (auto) 0.66 K/uL (0.11-0.59); Monocytes % (auto) 7.6 %; Neutrophils # (auto) 6.79 K/uL (1.4-6.5); Neutrophils % (auto) 78.5 %; Platelet Count 193 K/uL (130-400); RDW Coefficient of Variation 14.6 % (11.5-14.5); RDW Standard Deviation 53.3 fL (36.4-46.3); Red Blood Count 4.01 M/uL (4.2-5.4); White Blood Count 8.66 K/uL (4.8-10.8)
[2019-08-25 10:13] LABS: Mean Corpuscular Hgb Conc 32.6 g/dL (32-36)
[2019-08-25 10:20] LABS: INR 2.7 (0.9-1.1); Prothrombin Time 26.2 Seconds (9.0-12.0)
[2019-08-25 10:26] LABS: Albumin Level 2.4 gm/dl (3.4-5.0); BUN Creatinine Ratio 25.3 (10-20); Calcium 10.1 mg/dl (8.5-10.1); Est GFR (African American) 89.5; Est GFR (Non-African American) 77.2; Potassium 4.1 mmol/L (3.5-5.1)
[2019-08-25 10:29] LABS: Albumin Globulin Ratio 0.7 (0.9-2); Bilirubin,Total 0.4 mg/dl (0.2-1); Globulin 3.6 gm/dl (2.5-4.0)
--- NOTE | 2019-08-25 12:45 | Hospitalist Progress Note ---
Date of Service August 25, 2019 Assessment & Plan (1) PNA (pneumonia): Left basilar pneumonia Possible Aspiration CXR:Suspected large hiatal hernia. Aortic tortuosity. Left basilar atelectasis/consolidation. Splaying of the kaley. This could be secondary to the large hiatal hernia or left atrial enlargement Elevated Procalcitonin >>Trended down Continue Unasyn, Doxycycline>>>Transined to Augmentin, Doxy-- Day #6/7 Blood Culture:No growth to date Nebs PRN Speech evaluation done Aspiration Precautions Clinically improved (2) Hypoxia: Hypoxia secondary to above Titrate oxygen to keep sats above 92% Wean off of oxygen as able (3) Generalized weakness: Patient is mostly Recliner/Bed bound at baseline She needs assistance with ADLs (4) History of deep venous thrombosis or pulmonary embolus: Supratherapeutic INR--Resolved Last INR 2.7 Today Continue to hold Coumadin today Monitor INR (5) HTN (hypertension): Elevated secondary to pain Added amlodipine Continue lisinopril increased to 20 mg daily Vasotec PRN Monitor (6) Lumbar compression fracture: Has chronic back pain Patient was prescribed Ultram recently which may be contributing to tiredness and confusion Continue fentanyl patch IV Tylenol as needed Avoid additional Narcotics as able monitor DVT Px: Hold Coumadin as INR is therapeutic CODE STATUS DNR/DNI Disposition: Rehab placement Case management on board Subjective Patient is seen and examined at bedside No new complaints Back pain is better INR in therapeutic range Family at bedside Cough, SOB resolved Denies any chest pain, nausea, abd pain Planned to be discharged to rehab facility today Review of Systems Review of Systems: All systems reviewed & are unremarkable except as noted in HPI & below Physical Exam Physical Exam: Physical Exam: Vitals signs as noted above General Appearance:Moderately built and nourished, ill appearing Head: normocephalic, Atraumatic Eyes: normal inspection, EOMI Neck: supple, Trachea midline Respiratory/Chest: Decreased breath sounds, CTA Cardiovascular: S1, S2, No murmur Abdomen/GI:Soft, Non tender, Bowel sounds present Extremities/Musculoskelatal:normal inspection, Trace edema Neurologic/Psych:AAOX2, grossly no focal neurological deficits Skin: normal color, warm Results & Data Vital Signs (Past 12 Hours) Vital Signs Temp Pulse Resp BP Pulse Ox 08/25/19 07:03 36.2 C L 83 15 147/85 H 98 Laboratory Results Short CBC 08/25/19 Range/Units 09:56 WBC 8.66 (4.8-10.8) K/uL Hgb 13.1 (12.0-16.0) g/dL Hct 40.2 (37-47) % Plt Count 193 (130-400) K/uL BMP 08/25/19 09:56 Sodium 138 Potassium 4.1 Chloride 101 Carbon Dioxide 32 BUN 17 Creatinine 0.69 Glucose 114 H Calcium 10.1 Liver Function 08/25/19 Range/Units 09:56 Total Bilirubin 0.4 (0.2-1) mg/dl AST 12 L (15-37) U/L ALT 12 (12-78) U/L Alkaline Phosphatase 102 (45-117) U/L Albumin 2.4 L (3.4-5.0) gm/dl (1) PNA (pneumonia) Laterality: left Lung location: lower lobe of lung Pneumonia type: due to unspecified organism Qualified Code(s): J18.1 - Lobar pneumonia, unspecified organism
--- NOTE | 2019-08-25 12:55 | Discharge Summary ---
Date of Service August 25, 2019 Admission HPI Per Admitting Provider She is an 88-year-old female with significant past medical 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 She has been getting tramadol to for back pain recently which is making her weak and tired as per the son. She denies any fever and/or chills. Denies any chest pain and/or palpitation and no abdominal pain,nausea and/or vomiting. She passes most of the time on a recliner and she has been complaining of some swelling of the legs. She needs help for ADLs. The emergency room she was minimally short of breath without any fever and/or tachycardia or any increase in white cell count but chest x-ray noted to have left lower lobe infiltration/consolidation. She has started with intravenous Unasyn and doxycycline. She was admitted to telemetry unit for continuation of care. Admission Exam Per Admitting Provider Physical Exam: Lying in bed with pain moderate distress due to shortness of breath Constitutional: + acute distress (Shortness of breath and back pain), + ill appearing, + thin and + cachectic Eyes: PERRL, conjunctivae normal, anicteric sclerae ENMT: external ear and nose normal, oropharynx normal Neck: trachea midline, no thyromegaly Respiratory: + respiratory distress and + uses accessory muscles Auscultation: + diminished lung sounds (Bilateral at the bases) and + crackles (Left base mainly) Cardiovascular: Rate/Rhythm: regular rate and regular rhythm Heart Sounds: no murmur Gastrointestinal (Abdomen): Inspection/Auscultation: abdomen normal to inspection and normal bowel sounds Percussion/Palpation: abdomen soft; abdomen nontender Musculoskeletal: Osteoarthritic changes in the joints but no acute arthritis in any joint Skin: Generalized bruising mostly in the upper extremities Neurologic: moves all extremities; no focal motor deficits Alert , awake and oriented. Generally weak Lymphatic: no cervical or axillary lymphadenopathy Principal Diagnosis Left basilar pneumonia Acute respiratory failure with hypoxia Chronic back pain Discharge Data Allergies Allergy/AdvReac Type Severity Reaction Status Date / Time azithromycin Allergy Unknown Unknown Verified 08/20/19 16:12 Consultations 08/20/19 18:33 ED Decision to Admit Stat Procedures Performed CXR: 1. Suspected large hiatal hernia 2. Aortic tortuosity 3. Left basilar atelectasis/consolidation 4. Splaying of the kaley. This could be secondary to the large hiatal hernia or left atrial enlargement Hospital Course (1) PNA (pneumonia): Left basilar pneumonia Possible Aspiration CXR:Suspected large hiatal hernia. Aortic tortuosity. Left basilar atelectasis/consolidation. Splaying of the kaley. This could be secondary to the large hiatal hernia or left atrial enlargement Elevated Procalcitonin >>Trended down Continue Unasyn, Doxycycline>>>Transined to Augmentin, Doxy-- Day #6/7 Blood Culture:No growth to date Nebs PRN Speech evaluation done Aspiration Precautions Clinically improved (2) Hypoxia: Hypoxia secondary to above Titrate oxygen to keep sats above 92% Wean off of oxygen as able (3) Generalized weakness: Patient is mostly Recliner/Bed bound at baseline She needs assistance with ADLs (4) History of deep venous thrombosis or pulmonary embolus: Supratherapeutic INR--Resolved Last INR 2.7 Today Continue to hold Coumadin today Monitor INR (5) HTN (hypertension): Elevated secondary to pain Added amlodipine Continue lisinopril increased to 20 mg daily Vasotec PRN Monitor (6) Lumbar compression fracture: Has chronic back pain Patient was prescribed Ultram recently which may be contributing to tiredness and confusion Continue fentanyl patch IV Tylenol as needed Avoid additional Narcotics as able monitor DVT Px: Hold Coumadin as INR is therapeutic CODE STATUS DNR/DNI Disposition: Rehab placement Case management on board Total Time Total Time Spent Total Time Spent (In Minutes): 40 minutes Total Time Includes: Examination of the Patient, Discharge Planning, Medication Reconciliation, Communication With Other Providers and Other Discharge Plan Discharge Items Patient Disposition: Transfer [facility] Reason For Visit: PNEUMONIA Discharge Diagnosis: Left basilar pneumonia Acute respiratory failure with hypoxia Chronic back pain Activity: Per Instructions section Exercise/Sports: Gradually increase as tolerated Non-emergency contact: Primary Care Provider Call non-emergency contact if: you have any medication questions, your symptoms worsen, your pain is not controlled, your pain is worsening, your pain is unusual for you, your pain is concerning for you and you have a fever Follow-up/Referrals: Paco Staley MD [Primary Care Provider] - Diet: Heart Healthy Addtl Attending Provider Instructions: Follow-up with your primary care physician Dr. Staley in 1 week as advised Follow-up with your orthopedic surgeon if no resolution of back pain Complete the antibiotic course as prescribed Your PT/INR is 2.7 today. Hold taking Coumadin today 08/25/19 Get PT/INR checked tomorrow (08/25/19) and follow-up with your physician at rehab facility for further Coumadin dosing Wean off off oxygen at rehab facility as able Minimize additional narcotics use as able (H/O Intolerance to tramadol) Seek immediate medical attention if your symptoms reoccur or worsen Pending Studies at Discharge: No Stand-Alone Forms: My [facility] Skilled Items Patient informed of condition?: Yes DNR: Yes Discharge Level of Care: Skilled Communicable Disease: No Discharge Prognosis: Stable Lines: None Urinary Catheter: No Medications and DC Order Prescriptions: New doxycycline hyclate 100 mg Capsule 100 mg PO BID Qty: 4 RF: 0 amlodipine [Norvasc] 5 mg Tablet 5 mg PO QAM 30 Days Qty: 30 RF: 0 amoxicillin-pot clavulanate 500-125 mg Tablet 1 tab PO BIDM Qty: 4 RF: 0 polyethylene glycol 3350 [Miralax] 17 gram Powder In Packet 17 g PO DAILY PRN (Reason: constipation) Qty: 30 RF: 0 docusate sodium 100 mg Capsule 100 mg PO BID PRN (Reason: Constipation) Qty: 30 RF: 0 fentanyl 12 mcg/hr Patch 72 Hour 12 mcg transdermal Q3D Qty: 3 RF: 0 acetaminophen [Mapap (acetaminophen)] 325 mg Tablet 650 mg PO Q8H PRN (Reason: pain) Qty: 0 RF: 0 Continued atorvastatin 20 mg tablet 20 mg PO DAILY RF: 0 warfarin 5 mg tablet 5 mg PO DAILY RF: 0 omeprazole 20 mg capsule,delayed release(DR/EC) 20 mg PO DAILY RF: 0 Changed lisinopril 10 mg tablet 20 mg PO DAILY Qty: 0 RF: 0 Discontinued tramadol 50 mg tablet 50 mg PO Q6H PRN (Reason: Pain) RF: 0 Discharge Orders: Discharge Order (Routine); Ordered 08/25/19 Ordered By: Malvin Bautista Admission Data Admit Date/Time: 08/20/19 19:11 Attending Provider: Wilner Castanon Admit Provider: Riaz Zuniga Primary Care Provider: Paco Staley Other Providers: Riaz Zuniga ; [facility]
== END 2019-08-25 16:30 | DRG 179 ==
LOC: ED 15:39 → 2S 19:11 → SUATTDRO 19:11 → 2S 20:45 → 3W 08-22 10:39